=== PATIENT | female | born 1985 | race Caucasian/White ===

== ENCOUNTER 2024-11-25 16:15 | Emergency (ER) | payer BC, SELFPAY ==
--- NOTE | 2024-11-25 17:21 | ED.URI ---
HPI - URI/Sore Throat General Chief Complaint: Upper Respiratory Infection Stated Complaint: throat soreness and pain when breathing Time Seen by Provider: 11/25/24 17:31 History of Present Illness HPI Narrative: 39-year-old female presented for complaint of cough, sore throat, nasal congestion and fatigue. Onset 3 days. Endorses a cough has induced vomiting. She denies shortness of breath, wheezing, nausea, vomiting and her CT of fever or lethargy. Taking Sudafed and nasal congestion. Related Data Allergies Allergy/AdvReac Type Severity Reaction Status Date / Time No Known Allergies Allergy Verified 11/25/24 17:48 Review of Systems Review of Systems: per HPI Exam Narrative: GENERAL: well-appearing, no acute distress. EYES: conjunctivae clear ENT: Mucous membranes moist. TMs pearly land with normal light reflex bilaterally; no tragal tenderness. Oropharynx mildly erythematous without lesions. Tonsils not enlarged and without exudate. No drooling, no hoarseness, no trismus, uvula midline. No tripod positioning, hot potato voice, or soft palate swelling. NECK: Supple. No lymphadenopathy CHEST: Clear to auscultation, breath sounds equal. No respiratory distress, speaks in full sentences. HEART: Regular rate and rhythm. No murmur heard. SKIN: Warm, dry, no rash. NEURO: Alert and oriented x3. Course Course Emergency Course: Patient is aware of diagnosis, understands and agrees to treatment plan. Anticipatory guidance given. Patient agrees to follow-up as directed and is aware of reasons to seek care at the emergency department. Portions of this record may have been created with voice recognition software Level of Care: Express Care Visit Vital Signs Vital signs: Vital Signs Temperature 98.6 F 11/25/24 17: Pulse Rate 79 11/25/24 17:25 Respiratory Rate 16 11/25/24 17:25 Blood Pressure 111/86 11/25/24 17:25 Pulse Oximetry 100 11/25/24 17:25 Oxygen Delivery Room Air 11/25/24 17:25 Temperature 98.6 F 11/25/24 17:25 Pulse Rate 79 11/25/24 17:25 Respiratory Rate 16 11/25/24 17:25 Blood Pressure 111/86 11/25/24 17:25 Pulse Oximetry 100 11/25/24 17:25 Oxygen Delivery Room Air 11/25/24 17:25 MDM - URI/Sore Throat MDM Narrative Medical decision making narrative: Negative flu and COVID result reviewed with pt. Advise supportive treatments. Patient is appropriate for outpatient treatment and follow-up. Differential Diagnosis Differential diagnosis: Likely upper respiratory infection, viral infection and pharyngitis Lab Data Labs: Lab Results 11/25/24 Range/Units 17:24 POC Influenza A Ag Negative (Negative) POC Influenza B Ag Negative (Negative) POC SARS CoV-2 Ag Negative (Negative) Discharge Plan Discharge Clinical Impression: Viral infection Patient Disposition: Home, Self-Care Condition: Stable Instructions: Antibiotic Form, Acute Bronchitis (ED) Additional Instructions: Acute bronchitis can be contagious because it is usually caused by infection with a virus or bacteria. It is usually for a few days but you can be contagious for up to one week. Avoid crowds until you do not have a fever and symptoms are improved Take medication as directed Flonase spray and Zyrtec (or Claritin/Morelia) over the counter Cough syrup may cause drowsiness; avoid driving or take it at night time. Tylenol 1000mg every 8 hours as needed for pain Symptomatic treatment includes: rest, fluids, and increase humidity of the air at home. Follow up with your primary care provider as needed in 1 week Go to the ER for worsening symptoms or concerns Patient Language: South Korean Prescriptions: New benzonatate 200 mg capsule 200 mg PO TID PRN (Reason: cough) Qty: 20 0RF prednisone 20 mg tablet 40 mg PO DAILY 5 Days Qty: 10 0RF Follow-up/Referrals: UNKNOWN,DOCTOR [Primary Care Provider] - Time of Disposition: 18:15
[2024-11-25 17:25] VITALS: BP 111/86; PULSE 79; RESP 16; TEMP 37; O2SAT 100
[2024-11-25 17:42] LABS: EDCOVIDSCREEN Negative (Negative); EDINFLUASCREEN Negative (Negative); EDINFLUBSCREEN Negative (Negative)
--- OUTSIDE RECORDS SUMMARY | 2024-11-25 18:28 | XMS_ITS | Encounter Summary ---
Author Organization [facility] Address [address] [place] [address] Care Team Providers Care Slip Box Changer Name Role Phone Unavailable Primary Care Provider Unavailabl e Encounter Details Date Type Department Care Team (Late st Contact Info) Description 04/28/2023 Lab Requisition [facility] - DermPath Lab [address] [facility] [facility] [place] [id number] Colten Ashton MD [facility] DERMATOLOGY [address] [place] [phone] Other follicular cysts of the skin and subcutaneous tissue Social History Tobacco Use Types Packs/Day Years Used Date Smoking Tobacco: Never Assessed Sex and Gender Information Value Date Recorded Sex Assigned at Not on file Gender Identity Not on file Sexual Orientation Not on file documented as of this encounter Plan of Treatment Not on file documented as of this encounter Procedures Procedure Name Priority Date/Time Associated Diagnosis Comments DERMATOPATHOLOGY Routine 04/28/2023 12:0 0 AM CDT Other follicular cysts of the skin and subcutaneous tissue documented in this encounter Results * DERMATOPATHOLOGY (04/28/2023 12:00 AM CDT) Case Report Dermatopathology Report Case: [id number] Authorizing Provider: Colten Ashton MD Collected: 04/28/2023 12:00 AM Ordering Location: [facility] DermPath Lab Received: 05/03/2023 02:00 PM Pathologist: Nicole Cool MD Specimen: Skin, left central malar cheek 3 4:07 PM CDT DERMATOPATHOLOGY LABORATORY Final Diagnosis Specimen A. 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 Check Margins. 3 4:07 PM [facility] DERMATOPATHOLOGY LABORATORY Gross Description Specimen A: Received is one formalin filled container labeled with the patient's name and designated left central malar cheek. The specimen consists of a 10x3x5 mm piece of skin. The margin is inked green. The specimen is bisected lengthwise and submitted in 1 cassette. Jar 0. 3 4:07 PM T DERMATOPATHOLOGY LABORATORY Microscopic Description Specimen A. SKIN, left central malar cheek: Within the dermis, there is a space lined by one to several layers of typical epithelial cells that resemble the lining of the normal sweat duct. This lesion approximates the margin of the specimen. 3 4:07 PM T DERMATOPATHOLOGY LABORATORY Disclaimer An external and internal positive and negative controls are appropriate for the histochemical, immunohistochemical and immunofluorescence stain(s) in this case (if any), except where stated explicitly. The performance characteristics of the stain(s) cited in this report were developed and its performance characteristic determined by the Dermatopathology Laboratory at [facility], directed by Dr. Kiko Amaya. These tests need not be, and therefore are not, approved by the [place] Food and Drug Administration. The tests are used for clinical purposes. Billing Codes Specimen Charges Stain Charges 53799 1 3 4:07 PM CDT DERMATOPATHOLOGY LABORATORY Embedded Images 3 4:07 PM T DERMATOPATHOLOGY LABORATORY Pathology/Cytolog y TISSUE SPECIMEN FROM SKIN / Unknown 04/28/2023 05/03/2023 2:00 PM CDT Colten Ashton MD LAB - PATHOLOGY/CYTO LOGY ORDERABLES DERMATOPATHOLOGY LABORATORY [facility] - Department of Dermatology [address] [phone] documented in this encounter Visit Diagnoses Diagnosis Other follicular cysts of the skin and subcutaneous tissue documented in this encounter
--- OUTSIDE RECORDS SUMMARY | 2024-11-25 18:28 | XMS_ITS | Referral Summary ---
Author Organization [facility] Address [address] [place] [address] Care Team Providers Care Surveyor Oil Well Directional Name Role Phone Unavailable Primary Care Provider Unavailabl e Source Comments [facility],non-owned Affiliates and Associated Physician Practices is amultiple site organization consisting of ambulatory clinics and hospital sitesin [place], [place], [place] and [place]. This disclosure is being madepursuant to the Care Everywhere program and may not contain all information available regarding this patient. Last updated 18.[facility] [employer] Social History Tobacco Use Types Packs/Day Years Used Date Smoking Tobacco: Never Assessed Sex and Gender Information Value Date Recorded Sex Assigned at Not on file Gender Identity Not on file Sexual Orientation Not on file Plan of Treatment Not on file
--- OUTSIDE RECORDS SUMMARY | 2024-11-25 18:28 | XMS_ITS | Encounter Summary ---
Author Organization [facility] Address [address] [place] [address] Care Team Providers Care Behavioral Analyst Name Role Phone Marifer Yeager NP Primary Care Provider [phone] Encounter Details Date Type Department Care Team (Late st Contact Info) Description 04/05/2023 [employer] Message [facility] Family Medicine [facility] [address] [place] [address] [facility] Provider 3rd HPV injection Social History Tobacco Use Types Packs/Day Years Used Date Smoking Tobacco: Never Smokeless Tobacco: Never Alcohol Use Standard Drinks/Week Comments Yes 0 (1 standard drink = 0.6 oz pur e alcohol) social PHQ-2 Answer Date Recorded Patient Health Questionnaire-2 Score 1 03/08/2023 Comments No Sex and Gender Information Value Date Recorded Sex Assigned at Female 12/29/2023 8:01 AM CDT 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 No / Unsure 03/08/2023 7:28 AM CDT documented as of this encounter Plan of Treatment Not on file documented as of this encounter Visit Diagnoses Not on filedocumented in this encounter Additional Health Concerns Assessment Noted Time PHQ-9 Depression Total Score: 6 03/08/20 7:33 AM CDT documented as of this encounter Care Teams Behavioral Analyst Relationship Specialty Start Date End Date Marifer Yeager NP [address] [place] [address] PCP - General NURSE PRACTITIONER 02/20/23 documented as of this encounter
--- OUTSIDE RECORDS SUMMARY | 2024-11-25 18:28 | XMS_ITS | Patient Health Summary ---
Author Organization [facility] Address [address] [place] [address] Care Team Providers Care Licensing Worker Name Role Phone Unavailable Primary Care Provider Unavailabl e Note from [facility],non-owned Affiliates and Associated Physician Practices is amultiple site organization consisting of ambulatory clinics and hospital sitesin [place], [place], [place] and [place]. This disclosure is being madepursuant to the Care Everywhere program and may not contain all information available regarding this patient. Last updated 18.[facility] Social History Tobacco Use Types Packs/Day Years Used Date Smoking Tobacco: Never Assessed Sex and Gender Information Value Date Recorded Sex Assigned at Not on file Gender Identity Not on file Sexual Orientation Not on file Procedures * DERMATOPATHOLOGY(Performed 04/28/2023) Performed for Other follicular cysts of the skin and subcutaneous tissue Results * DERMATOPATHOLOGY (04/28/2023 12:00 AM CDT) Case Report Dermatopathology Report Case: [id number] Authorizing Provider: Colten Ashton MD Collected: 04/28/2023 12:00 AM Ordering Location: [facility] DermPath Lab Received: 05/03/2023 02:00 PM Pathologist: Nicole Cool MD Specimen: Skin, left central malar cheek 3 4:07 PM CDT DERMATOPATHOLOGY LABORATORY Final Diagnosis Specimen A. 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 Check Margins. 3 4:07 PM CDT DERMATOPATHOLOGY LABORATORY Gross Description Specimen A: Received is one formalin filled container labeled with the patient's name and designated left central malar cheek. The specimen consists of a 10x3x5 mm piece of skin. The margin is inked green. The specimen is bisected lengthwise and submitted in 1 cassette. Jar 0. 3 4:07 PM CDT DERMATOPATHOLOGY LABORATORY Microscopic Description Specimen A. SKIN, [...] characteristic determined by the Dermatopathology Laboratory at [facility], directed by Dr. Kiko Amaya. These tests need not be, and therefore are not, approved by the [place] Food and Drug Administration. The tests are used for clinical purposes. Billing Codes Specimen Charges Stain Charges 25854 1 3 4:07 PM CDT DERMATOPATHOLOGY LABORATORY Embedded Images 3 4:07 PM CDT DERMATOPATHOLOGY LABORATORY Pathology/Cytolog y TISSUE SPECIMEN FROM SKIN / Unknown 04/28/2023 05/03/2023 2:00 PM CDT Colten Ashton MD LAB - PATHOLOGY/CYTO LOGY ORDERABLES DERMATOPATHOLOGY LABORATORY [facility] - Department of Dermatology [address] [phone]
--- OUTSIDE RECORDS SUMMARY | 2024-11-25 18:28 | XMS_ITS | Clinical Summary ---
Author Organization [facility] Address [address] [facility] [place] [address] Care Team Providers Care Almond Blancher Operator Name Role Phone Unavailable Primary Care Provider Unavailabl e Source Comments [facility],non-owned Affiliates and Associated Physician Practices is amultiple site organization consisting of ambulatory clinics and hospital sitesin [place], [place], [place] and [place]. This disclosure is being madepursuant to the Care Everywhere program and may not contain all information available regarding this patient. Last updated 18.[facility] Social History Tobacco Use Types Packs/Day Years Used Date Smoking Tobacco: Never Assessed Sex and Gender Information Value Date Recorded Sex Assigned at Not on file Gender Identity Not on file Sexual Orientation Not on file Plan of Treatment Health Maintenance Due Date Last Done Comments LIPID TESTING 1984 MAMMOGRAM 1984 PAP SMEAR 1984 HIV SCREENING 12/31/1998 HEPATITIS C SCREENING 12/27/2001 DTAP/TDAP/TD VACCINES (1 - Tdap) 12/31/2002 HEPATITIS B VACCINE (1 of 3 - 19+ 3-dose series) 12/31/2002 COVID-19 VACCINE ( - 2023-2 5 season) 2024 INFLUENZA VACCINE (#1) 2024 DEPRESSION SCREENING 10/09/2024 ZOSTER VACCINE (1 of 2) 12/31/2033 HIB VACCINE Aged Out No longer eligi ble based on patient's age to complete this topic HPV VACCINE Aged Out No longer eligi ble based on patient's age to complete this topic MENINGOCOCCAL (Group B) VACCINE Aged Out No longer eligible based on patient's age to complete this topic MENINGOCOCCAL VACCINE Aged Out No binta melodie eligible based on patient's age to complete this topic PNEUMOCOCCAL VACCINE Aged Out No long er eligible based on patient's age to complete this topic
--- OUTSIDE RECORDS SUMMARY | 2024-11-25 18:28 | XMS_ITS | Clinical Summary ---
Author Organization [facility] Address [address] [place] [id number] Care Team Providers Care Numerical Control Programmer Name Role Phone Bryan Yeager NP Primary Care Provider [phone] Allergies No known active allergies Medications Levonorgestrel (LILETTA, 52 MG,) 20.1 MCG/DAY IUD Active sertraline (ZOLOFT) 25 MG tabletIndication s:Anxiety take 1 tablet daily 90 tablet 3 03/07/2024 Active Active Problems Problem Noted Date Diagnosed Date Strain of neck muscle, initial encounter 020 Overview (10/21/2019): try medication as ordered will try PT if no improvement also suggested massage therapy use different method of carrying work back around Immunizations Name Administration Dates Next Due HPV GARDASIL 9-VALENT 04/05/2023,03/16/2023 Tdap (Adacel) 03/16/2023 Family History Medical History Relation Comments Breast Cancer Maternal Grandmother Relation Status Comments Father Alive Maternal Grandmother Mother Alive Social History Tobacco Use Types Packs/Day Years Used Date Smoking Tobacco: Never Passive Smoke Exposure: Never Smokeless Tobacco: Never Tobacco Cessation:Counseling Given: No Alcohol Use Standard Drinks/Week Comments Yes 0 (1 standard drink = 0.6 oz pur e alcohol) social PHQ-2 Answer Date Recorded Patient Health Questionnaire-2 Score 0 01/25/2024 Comments No Sex and Gender Information Value Date Recorded Sex Assigned at Female 12/29/2023 8:01 AM CDT Legal Sex Female 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 AM ACADEMIC SERVICES PROFESSIONAL Gender Identity Female 12/29/2023 8:01 AM CDT Sexual Orientation Straight 12/29/2023 8: 01 AM CDT Last Filed Vital Signs Vital Sign Reading Time Taken Comments Blood Pressure 106/72 01/25/2024 7:23 AM CDT Pulse 73 01/25/2024 7:23 AM CDT Temperature 37.1 C (98.7 F) 01/25/2024 7:23 AM CDT Respiratory Rate 18 01/25/2024 7:23 AM CDT Oxygen Saturation 100% 01/25/2024 7:23 AM CDT Inhaled Oxygen Concentration - - Weight 67.1 kg (148 lb) 01/25/2024 7:23 AM CDT Height 162.6 cm (5' 4 ) 01/25/2024 7:23 AM CDT Body Mass Index 25.4 01/25/2024 7:23 AM CDT Plan of Treatment Health Maintenance Due Date Last Done Comments Cervical Cancer Screening Pa p Smear (Age 30 to 64) Every 3 Years 1984 Hepatitis C 12/31/2001 Hepatitis B Vaccines (1 of 3 - 19+ 3-dose series) 12/31/2002 Cervical Cancer Screening Pa p with HPV Testing (Age 30 to 64) Every 5 Years 12/31/2013 Cervical Cancer Screening wi th HPV 12/31/2013 HPV Vaccines (2 - 3-dose SCD M series) 05/03/2023 04/05/2023, 03/16/2023 COVID-19 Vaccine ( - 2023-2 5 season) 2024 Influenza Adult (#1) 2024 PHQ-2 (Physician [place]) 10/09/2024 01/25/2024 Annual Physical 01/24/2025 01/25/2024 PHQ-2 (Physician [place]) 01/24/2025 01/25/2024 Mammogram Screening 02/11/2026 02/12/2024 DTaP, Tdap and Td Vaccines ( 2 - Td or Tdap) 03/16/2033 03/16/2023 Meningococcal B Vaccine Aged Out No l onger eligible based on patient's age to complete this topic Meningococcal Vaccine Aged Out No binta melodie eligible based on patient's age to complete this topic Pneumococcal Vaccine: Pediatrics (0 to 5 Years) and At-Risk Patients (6 to 64 Years) Aged Out No longer eligible b ased on patient's age to complete this topic RSV Immunizations Under 20 Months Aged Out No longer eligible b ased on patient's age to complete this topic Procedures Procedure Name Priority Date/Time Associated Diagnosis Comments MG SCREENING W CINDY SHEELA DIGI Routine 02/12/2024 1:21 PM CDT Encounter for screening mammogram for malignant neoplasm of breast from Last 3 Months or Most Recently Relevant to Health Maintenance Results * MG SCREENING W CINDY SHEELA DIGI (02/12/2024 1:21 PM CDT) Anatomical Region Laterality Modality Breast Bilateral Mammography 02/12/2024 4:34 PM CDT Impressions 02/12/2024 4:36 PM CDT IMPRESSION: No mammographic evidence of malignancy. Recommend screening mammography bilaterally in 12 months. Given extreme dense breast density, supplemental screening MRI can be considered as clinically appropriate. RECOMMENDATION: Routine ScreeningBilateral OVERALL IMAGING ASSESSMENT: ACR BI-RADS 2 - BENIGN FINDING(S). Ordered By: BRYAN YEAGER Interpreted By: Lucas Denny, 02/12/2024 4:34 PM Narrative 02/12/2024 4:36 PM CDT EXAMINATION: MG SCREENING W CINDY SHEELA DIGI INDICATIONS: Screening TECHNIQUE: Digital full field CC and MLO screening mammography bilaterally to include 3-D Tomosynthesis technique. This study was read with the assistance of a computer-aided detection system. HISTORY: Family history of breast cancer. No documented personal or first degree family history of breast cancer. No documented prior breast procedure or current breast complaint. COMPARISON: None. Baseline examination. TISSUE DENSITY: The breast tissue is extremely dense, which lowers the sensitivity of mammography. FINDINGS: Few scattered typically benign round and layering amorphous calcifications. No suspicious microcalcification, mass, or focal asymmetry .No architectural distortion. No axillary adenopathy. Bryan Yeager NP MAMMO Final Result from Last 3 Months or Most Recently Relevant to Health Maintenance Insurance [facility] Care Teams Numerical Control Programmer Relationship Specialty Start Date End Date Bryan Yeager [place] [address] PCP - General NURSE PRACTITIONER 02/20/23
== END 2024-11-25 18:16 | disposition home or self-care (01) ==
PROVIDERS: Emergency Provider Nurse Practitioner Family
DX: B34.9 Viral infection, unspecified (principal); Z20.822 Contact with and (suspected) exposure to COVID-19
CPT/HCPCS: 87426; 87804; 99203; G0463